=== PATIENT | female | born 1965 | race Caucasian/White ===

== ENCOUNTER 2016-06-29 14:31 | Emergency (ER) | payer OTHER ==
[~2016-06-29] VITALS: Ht 157.5 cm; Wt 101.7 kg
[2016-06-29 14:38] VITALS: Ht 157.5 cm; Wt 101.7 kg
[2016-06-29] MEDS ORDERED: ONDANSETRON 4MG OD TAB PO STA (15:08)
--- NOTE | 2016-06-29 15:46 | DIAGNOSTIC IMAGING REPORT ---
CERVICAL SPINE CT CT DOSE: 346.55 mGy.cm HISTORY: Trauma fall; neck pain TECHNIQUE: Multiaxial CT images of the cervical spine were performed and reformatted in the sagittal and coronal plane without the use of contrast. COMPARISON: None. FINDINGS: No fractures. No subluxation. Prevertebral soft tissues and the C1-C2 interval are intact. No pneumothorax. IMPRESSION: No fractures within the cervical spine. Electronically signed by: Ray Rosado M.D. 06/29/2016 3:44 PM Dictated Date/Time: 06/29/2016 3:43 PM
--- NOTE | 2016-06-29 16:20 | DIAGNOSTIC IMAGING REPORT ---
RIGHT KNEE 3 VIEWS CLINICAL HISTORY: fall; L knee pain Right trauma. Pain. COMPARISON: None. DISCUSSION: The bones and joint spaces appear intact. There is no evidence of fracture, dislocation or bony disease. There is no evidence for soft tissue swelling. IMPRESSION: Negative study. Electronically signed by: Ray Rosado M.D. 06/29/2016 4:19 PM Dictated Date/Time: 06/29/2016 4:18 PM
--- NOTE | 2016-06-29 16:21 | DIAGNOSTIC IMAGING REPORT ---
LEFT FOOT MIN 3 VIEWS ROUTINE CLINICAL HISTORY: fall; R foot pain trauma. Pain. COMPARISON: None. DISCUSSION: The bones and joint spaces appear intact. There is no evidence of fracture, dislocation or bony disease. There is no evidence for soft tissue swelling. IMPRESSION: Negative study. Electronically signed by: Ray Rosado M.D. 06/29/2016 4:19 PM Dictated Date/Time: 06/29/2016 4:19 PM
[2016-06-29] MEDS ORDERED: HYDROCODONE/ACETAMOPHEN 5/325MG TAB PO STA (16:38)
--- NOTE | 2016-06-29 16:38 | DIAGNOSTIC IMAGING REPORT ---
RIGHT RIBS UNILATERAL WITH PA CHEST CLINICAL HISTORY: fall; R rib pain Right trauma. Pain. COMPARISON STUDY: None FINDINGS: Negative right ribs. Negative chest. No evidence pneumothorax. IMPRESSION: Negative study Electronically signed by: Ray Rosado M.D. 06/29/2016 4:36 PM Dictated Date/Time: 06/29/2016 4:35 PM
[2016-06-29] MEDS ORDERED: HYDR-5688 PO (16:58)
[2016-06-29 17:26] VITALS: BP 155/99; PULSE 90; TEMP 36.6; O2SAT 97
--- NOTE | 2016-06-30 21:48 | EMERGENCY ROOM VISIT NOTE ---
ED Visit Note First contact with patient: 14:46 Chief Complaint: Fall. History of Present Illness: Ms. Corona is a 51-year-old female who is brought into the ED via ambulance following a fall complaining of neck pain, right sided rib pain, knee pain and foot pain. Patient reports she has a history of dizziness and unspecified heart disease. She goes on to report that she was at work this morning walking down stairs, started feeling lightheaded and slipped and fell down 2-3 steps. She reports she did not strike her head or have loss of consciousness and after the fall she reports she is having right-sided neck pain, right sided rib pain, knee and foot pain. She reports since the fall which happened just prior to arrival at the hospital she has had no symptoms of head injury. Patient does report her worst discomfort is over the right side of the neck and her ribs. She describes these both as a sharp sensation. She rates her discomfort 5/10. Her pain is nonradiating. She has not identified any aggravating or alleviating factors related to her neck pain. Her rib pain increases with deep inspiration and palpation. Associated with her pain she reports she is nauseated but has not vomited. Additionally during my examination patient was found to have right knee pain. This pain is located over the anterior aspect of the knee. She describes this pain as a mild burning sensation but does not rated. Her pain worsens with palpation. She has not identified any alleviating factors related to this pain. Also on my examination patient complains of pain over the top of the left foot. She describes this as a sharp sensation. She rates this discomfort 4/10. The pain worsens with palpation and dorsiflexion. She has not identified any alleviating factors related to the pain. Additionally she denies chest pain, shortness of breath, abdominal pain, lumbar back pain, extremity weakness/numbness/tingling. Review of Systems: As noted above in history of present illness. All body systems were reviewed and found to be negative as noted above. Past Medical History: As previously noted. Current Medications: Patient denies. Allergies to Medications: Aspirin, sulfa. Social History: Patient is currently employed; she lives with her and feels safe in her home environment; she denies tobacco and alcohol use. Physical Examination: Vital Signs: Date Time Temp Pulse Resp B/P Pulse Ox O2 Delivery O2 Flow Rate FiO2 4/5/17 17:26 36.6 90 20 155/99 97 06/29/16 17:25 90 20 155/99 97 Room Air 06/29/16 14:38 36.6 102 20 186/100 97 Room Air GENERAL: 51-year-old female in mild to moderate distress due to pain, nontoxic- appearing, afebrile and hemodynamically stable. NEUROLOGICAL: Awake, alert and oriented to person, place and time. Answering questions appropriately and following commands. Normal gait. Good hand eye coordination. No focal motor sensory deficits. SKIN: Warm, dry and pink. HEENT: Atraumatic and normocephalic. PERRL. Sclera white and conjunctiva pink. No drainage from naris. Oral cavity moist and pink. Pharynx is nonerythematous or edematous. Speech normal. No lymphadenopathy. Trachea midline. No jugular venous distention. BACK: No tenderness over the bony spine. No CVA tenderness. THORAX: Lungs sounds are clear to auscultation and equal bilaterally with symmetrical chest wall. No wheezing, rales or rhonchi. No crepitus, tenderness , subcutaneous air or deformities noted. HEART: Regular rate and rhythm. No gallops, rubs or murmurs are appreciated. ABDOMEN: Flat, soft and nontender. Positive bowel sounds in all quadrants. No guarding, rigidity or organomegaly. PELVIS: Stable and nontender to compression and rock. UPPER EXTREMITIES: No gross bony deformity. No tenderness in the shoulders, elbows, wrists or hands. In the mid posterior forearm area patient has a contusion with minimal tenderness. There is no bony deformity or crepitus. She does have full range of motion in all movements of the shoulders, elbows, wrists, forearms and hands. Throughout the hand the skin was warm and pink and capillary refill is brisk. She is able to distinguish light sensations through all dermatomes. LOWER EXTREMITY: No gross bony deformity. No shortening or malrotation of the extremity. No tenderness over the hips, thighs, lower legs or ankles. Over the right anterior knee patient has a superficial abrasion without bleeding. It is minimally tender to palpation. There is no joint effusions or laxity of the collateral cruciate ligaments. Heart range of motion is decreased to 90 of flexion but she is able to reach full extension. Negative bounce test. Throughout the lower leg skin was warm and pink and capillary refill is brisk. She is able to distinguish light sensations through all dermatomes. There is no tenderness throughout the ankle or foot. Throughout the left lower leg was no gross bony tenderness. There is no tenderness over the knee or lower leg. She did have moderate tenderness over the top of the foot in the mode foot area without bony deformity or crepitus. There does appear to be an early contusion starting to develop. Because of her discomfort she had difficulty dorsiflexion but did have full plantar flexion of the foot. Distal pulses, sensations and capillary refill weren't place and equal bilaterally. ED Course: Patient is assessed as noted above. Patient was given one [place] tablet by mouth and 4 mg of Zofran ODT for her symptoms. Cervical Spine CT: Was reviewed by myself and read by the radiologist showing no fractures or subluxations. PA Chest with Right Rib Series X-Rays: Was read by myself and the radiologist showing no acute infiltrates, effusions or pneumothorax. Normal heart silhouette. No rib fractures were identified. Right Knee X-Rays: Were read by myself and the radiologist; shows no acute fractures or dislocations. No evidence of soft tissue swelling or joint effusion. Left Foot X-Rays: Were read by myself and the radiologist showing no acute fractures or dislocations. No evidence of soft tissue swelling. Patient was placed in a postop shoe for her for pain and instructed on walker use. Patient's case was reviewed with Dr. Landa; we agreed on diagnostic approach, treatment, disposition and plan. Patient was educated about tonight's findings and instructed on her treatment plan; she verbalizes understanding and agreement with this plan. Clinical Impression: Fall. Neck pain. Right sided rib pain. Right knee abrasion. Right foot pain. Disposition: Patient discharged home in stable condition accompanied by her ; prior to departure she was reassessed and subjectively reported she was feeling better. Plan: Comfort measures were discussed with the patient including rest, ice, splint and walker use and a sliding pain medication scale of ibuprofen, acetaminophen and [place]; appropriate precautions were discussed with the patient considering the use of narcotics. Patient was encouraged when she had maximal relief of her discomfort she should do deep breathing exercises for 5-10 minutes. Patient was encouraged to follow-up with primary care physician for recheck in 3 -4 days. Patient was encouraged return ED for worsening/uncontrolled pain, shortness of breath, fevers, wheezing, extremity weakness/numbness/tingling or any new/ concerning symptoms.
== END 2016-06-29 17:28 | disposition home or self-care (01) ==
LOC: EDBD 14:31 → C.EDB 14:36
DX: M54.2 Cervicalgia (principal); R07.81 Pleurodynia; S80.211A Abrasion, right knee, initial encounter; M79.671 Pain in right foot; W10.9XXA Fall (on) (from) unspecified stairs and steps, initial encounter; Y92.89 Other specified places as the place of occurrence of the external cause; Y99.0 Civilian activity done for income or pay; I51.9 Heart disease, unspecified

== ENCOUNTER 2024-12-03 14:50 | Inpatient (IN) ==
[2024-12-03 15:32] LABS: Hematocrit (blood only) 38.7 % (37.0-47.0); Hemoglobin 13.4 g/dl (12.0-16.0); Immature Granulocytes # (auto) 0.01 K/uL (0.01-0.20); Immature Granulocytes % (auto) 0.2 %; Mean Corpuscular Hemoglobin 29.5 pg (25.0-34.0); Mean Corpuscular Volume 85.2 fL (80.0-100.0); Platelet Count 227 K/uL (130-400); RDW Standard Deviation 38.5 fL (36.4-46.3); Red Blood Count 4.54 M/uL (4.20-5.40); White Blood Count 5.12 K/ul (4.8-10.8)
--- NOTE | 2024-12-03 15:42 | Emergency Department Note ---
Impression & Plan Precordial chest pain, SOB (shortness of breath), Tachycardia, Elevated d-dimer ED Provider Note NAME: JONATHAN AVERY AGE: 59 SEX: F : 1965 ARRIVES VIA: Walk-In INFORMANT: [Patient] ED PROVIDER(S): [Shyam Landa MD] CHIEF COMPLAINT: Chest pain, palpitations HISTORY OF PRESENT ILLNESS: The patient is a 59-year-old female who states that this morning, around 9-1/2 hours ago, she was on her [employer] when, the heart rate spiked to 201. She felt mildly short of breath. She states that she has had some left-sided chest pain and aching into the shoulder blade ever since. The pain is sometimes worse to take a deep breath. She feels mildly short of breath and today, she has been dizzy and has had to sit to catch her breath. No history of previous DVT or PE, no history of DE, she was told in the past that she had a leaky heart valve and has previously been diagnosed with SVT. No recent prolonged travel by car plane or train. She is not on blood thinning agents. PMHx/PSHx/Social Hx: See Below PHYSICAL EXAM: GENERAL: Patient is in no acute distress. HEENT: No acute trauma, normocephalic atraumatic, mucous membranes moist, no nasal congestion. NECK: No stridor, no adenopathy, no meningismus, trachea is midline. LUNGS: Clear to auscultation bilaterally, no wheeze, no rhonchi, breath sounds equal. HEART: Subtle systolic murmur, regular rate and rhythm. Chest: Nontender chest wall. ABDOMEN: Soft, nontender, no peritonitis. EXTREMITIES: No cyanosis, full range of motion of all the joints without pain or difficulty. NEUROLOGIC: Oriented x 3, no acute motor or sensory deficits, no focal weakness. SKIN: No jaundice, no diaphoresis. DIFFERENTIAL DIAGNOSIS: SVT, V. tach, A-fib or a flutter, DE, anemia, among others. EMERGENCY DEPARTMENT PROCEDURES: MEDICAL DECISION MAKING: There is no leukocytosis or concerning anemia. There is a normal platelet count. No coagulopathy. D-dimer is elevated making PE more likely. There was no renal failure or significant electrolyte abnormality. No concerning liver enzyme elevation. Patient appeared to be in a euthyroid state. ECG shows a sinus rhythm, no ST elevation. Cardiac enzyme testing x 1 is not consistent with acute cardiac injury. On exam, the patient's chest pain was not reproducible. She was not febrile or toxic. The patient presents with tachycardia, her heart rate was recorded in the 200s earlier today. Since the episode, she has had chest pain and has been short of breath. With the elevated D-dimer, a chest CT was ordered, these results are pending. Given the history, given the tachycardia, given her chest pain, given her dyspnea, given the elevated D-dimer, I do think a hospital stay, monitoring and further cardiac workup is warranted. I spoke with the patient and case management, the on-call hospitalist was consulted. The patient was given IV Tylenol pain--aspirin was not given as she has an allergy to aspirin. Prior/Outside records/notes reviewed: None ECG per my interpretation: Indication was palpitations and chest pain. The ECG shows a normal sinus rhythm with a rate of 77. There is no ST elevation, no PVCs. The QTc is 425. Continuous Cardiac Monitoring per my interpretation: An order was placed for continuous cardiac monitoring. The monitor shows a rate of 73 with normal sinus rhythm. Imaging/x-ray results per my interpretation: Chest x-ray does not show mediastinal widening, pneumonia or pneumothorax. Chronic Medical/Social conditions affecting care: None Care/Management discussed with: Case management, the on-call hospitalist. Level of care consideration(s): After review of the information above and other included data: --I believe the patient requires escalation of care to admission DISPOSITION: Admission Past Med/Surg History Problem List Elevated d-dimer (Acute) SOB (shortness of breath) (Acute) Precordial chest pain (Acute) COVID-19 (Acute) Acute pyelonephritis (Acute 02/17/11) Aortic valve regurgitation (Chronic Unknown) "mild by echo 12/24/10 " Left leg swelling (Acute) Left leg swelling (Acute) Lower GI bleed (Acute) Lumbar back pain (Acute) Neck pain (Acute) Thoracic back pain (Acute) Thoracic back pain (Acute) Medical History Tachycardia Social History Smoking Status: Never smoker Hx Alcohol Use: Yes Hx Substance Use: No Preferred Language: Bangl[place]hi 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 Beliefs That Will Affect Care: None Current Living Situation: Spouse Feels Safe at Home: Yes Allergies Allergies Allergy/AdvReac Type Severity Reaction Status Date / Time Sulfa (Sulfonamide Allergy Unknown Unknown Verified 10/04/19 12:05 Antibiotics) aspirin AdvReac Unknown BLEEDING Verified 10/04/19 12:05 AROUND EYES Home Meds Home Medications Medication Instructions Recorded Confirmed atorvastatin 40 mg tablet 40 mg PO HS 07/03/18 01/29/24 ergocalciferol (vitamin D2) 1,250 50,000 unit PO BURKS 07/03/18 01/29/24 mcg (50,000 unit) capsule melatonin 2.5 mg chewable tablet 2.5 mg PO HS PRN Sleep 11/13/18 01/29/24 potassium chloride 10 mEq 10 meq PO QAM 11/13/18 01/29/24 tablet,extended release (Klor-Con) aspirin 81 mg chewable tablet 81 mg PO HS 10/04/19 01/29/24 [id number]-[id number] acid 0.4 1 tab PO QAM 10/04/19 01/29/24 mg-lycopene 300 mcg-lutein 250 mcg tablet (Centrum Silver) furosemide 20 mg tablet 20 mg PO DAILY 01/29/24 01/29/24 metoprolol succinate 25 mg 25 mg PO DAILY 01/29/24 01/29/24 tablet,extended release 24 hr Results & Data (ED) Vital Signs Vital Signs - 24 hr 12/03/24 14:51 12/03/24 15:31 12/03/24 15:31 Temperature 36.6 C Temperature Source Temporal Artery Scan Pulse Rate 73 Pulse Rate [Apical] Pulse Rhythm [Apical] Pulse Strength [Apical] Respiratory Rate 18 Respiratory Effort / Characteristics Respiratory Depth Respiratory Pattern Blood Pressure 151/83 H Blood Pressure [Right Arm] Blood Pressure Mean 105 Blood Pressure Mean [Right Arm] Blood Pressure Position [Right Arm] Pulse Oximetry 97 96 96 Oxygen Delivery Method Room Air Room Air Room Air Sepsis Recent Fever Within 48 Hours No Sepsis New/Unexplained Change in Mental Status N/A Sepsis Action Taken by Nursing No Action Required 12/03/24 15:32 12/03/24 15:54 12/03/24 16:52 Temperature Temperature Source Pulse Rate 71 Pulse Rate [Apical] 57 L Pulse Rhythm [Apical] Regular Pulse Strength [Apical] Normal Respiratory Rate Respiratory Effort / Characteristics Non-Labored Spontaneous Respiratory Depth Normal Respiratory Pattern Regular Blood Pressure Blood Pressure [Right Arm] 116/73 Blood Pressure Mean Blood Pressure Mean [Right Arm] 87 Blood Pressure Position [Right Arm] Lying Pulse Oximetry 96 98 Oxygen Delivery Method Room Air Room Air Sepsis Recent Fever Within 48 Hours Sepsis New/Unexplained Change in Mental Status Sepsis Action Taken by [facility] Medications Current Medication List: was personally reviewed by me Laboratory Data Attestation: I reviewed the patient's lab results. 12/03/24 15:10 12/03/24 15:10 Lab Results 12/03/24 Range/Units 15:10 WBC 5.12 (4.8-10.8) K/ul RBC 4.54 (4.20-5.40) M/uL Hgb 13.4 (12.0-16.0) g/dl Hct 38.7 (37.0-47.0) % MCV 85.2 (80.0-100.0) fL MCH 29.5 (25.0-34.0) pg MCHC 34.6 (32.0-36.0) g/dL RDW Std Deviation 38.5 (36.4-46.3) fL RDW Coeff of Jace 12.5 (11.5-14.5) % Plt Count 227 (130-400) K/uL MPV 9.1 L (9.4-12.4) fL Immature Gran % (Auto) 0.2 % Neut % (Auto) 57.4 % Lymph % (Auto) 33.0 % [place] % (Auto) 8.0 % Eos % (Auto) 1.0 % Baso % (Auto) 0.4 % Neut # (Auto) 2.94 (1.40-6.50) K/uL Lymph # (Auto) 1.69 (1.20-3.40) K/uL [place] # (Auto) 0.41 (0.11-0.59) K/uL Eos # (Auto) 0.05 (0.00-0.50) K/uL Baso # (Auto) 0.02 (0.00-0.20) K/uL Immature Gran # (Auto) 0.01 (0.01-0.20) K/uL PT 10.3 (9.0-12.0) Seconds INR 0.9 (0.9-1.1) APTT 26 (21-31) Seconds PTT Ratio 1.0 D-Dimer 570 H* (0-500) ug/L FEU Sodium 142 (136-145) mmol/L Potassium 3.8 (3.5-5.1) mmol/L Chloride 105 (98-107) mmol/L Carbon Dioxide 28 (21-32) mmol/L Anion Gap 9 (3-11) BUN 15 (6-23) mg/dl Creatinine 0.73 (0.6-1.2) mg/dl Est Cr Clr Drug Dosing 78.3 ml/min eGFR 94.09 BUN/Creatinine Ratio 20.5 H (10-20) Glucose 94 (70-99(Fasting)) mg/dl Calcium 9.3 (8.6-10.3) mg/dl Magnesium 2.1 (1.7-2.4) mg/dl Total Bilirubin 1.3 H (0.2-1.0) mg/dl AST 32 (13-39) U/L ALT 29 (7-52) U/L Alkaline Phosphatase 76 (34-104) U/L Troponin I High Sens 3.2 (0-14) pg/ml Total Protein 7.4 (6.0-8.3) gm/dl Albumin 4.4 (3.4-5.0) gm/dl Globulin 3.0 (2.5-4.0) gm/dl Albumin/Globulin Ratio 1.5 (0.9-2) TSH 0.853 (0.300-4.500) uIu/ml Imaging Data Radiologist's Impression: Chest X-Ray 12/03/24 15:01 XR chest 1V portable CLINICAL HISTORY: Chest pain, nonspecific COMPARISON STUDY: 01/29/2024 FINDINGS: Heart size and pulmonary vasculature are normal. No consolidation or pleural effusion. No pneumothorax. IMPRESSION: No acute findings. ACT 112: Negative or not required by law. Electronically signed by: Alejo Reynoso M.D. 12/03/2024 3:48 PM Discharge Plan Visit Data Chief Complaint: Chest Pain Stated Complaint: CHEST PAIN, ELEVATED HEART RATE, NAUSEA ED Provider: Shyam Landa Discharge Problem: Precordial chest pain, SOB (shortness of breath), Tachycardia, Elevated d-dimer Patient Disposition: Admitted As Inpatient Condition: Fair Forms Stand Alone Forms: My [facility] Prescriptions Prescriptions: No Action atorvastatin 40 mg tablet 40 mg PO HS ergocalciferol (vitamin D2) 50,000 unit Capsule 50,000 unit PO BURKS Centrum Silver 0.4-300-250 mg-mcg-mcg Tablet 1 tab PO QAM aspirin 81 mg tablet,chewable 81 mg PO HS potassium chloride [Klor-Con 10] 10 mEq Tablet Extended Release 10 meq PO QAM Rx Instructions: take after breakfast melatonin 2.5 mg Tablet,Chewable 2.5 mg PO HS PRN (Reason: Sleep) furosemide 20 mg tablet 20 mg PO QAM metoprolol succinate 25 mg tablet extended release 24 hr 25 mg PO QAM Referrals Referrals: Krish Dimas MD [Outside Practitioners] -
--- NOTE | 2024-12-03 15:49 | XRay Report ---
XR chest 1V portable CLINICAL HISTORY: Chest pain, nonspecific COMPARISON STUDY: 01/29/2024 FINDINGS: Heart size and pulmonary vasculature are normal. No consolidation or pleural effusion. No p neumothorax. IMPRESSION: No acute findings. ACT 112: Negative or not required by law. Electronically signed by: Alejo Reynoso M.D. 12/03/2024 3:48 PM
[2024-12-03 15:52] LABS: Anion Gap 9.0 (3-11); Bilirubin,Total 1.3 mg/dl (0.2-1.0); Calcium 9.3 mg/dl (8.6-10.3); Carbon Dioxide 28.0 mmol/L (21-32); Chloride 105.0 mmol/L (98-107); Magnesium 2.1 mg/dl (1.7-2.4); Potassium 3.8 mmol/L (3.5-5.1); Sodium 142.0 mmol/L (136-145)
[2024-12-03 15:58] LABS: Alanine Aminotransferase 29.0 U/L (7-52); Albumin Globulin Ratio 1.5 (0.9-2); Alkaline Phosphatase 76.0 U/L (34-104); Blood Urea Nitrogen 15.0 mg/dl (6-23); Creatinine Clr Calc Pharmacy 78.3 ml/min; Globulin 3.0 gm/dl (2.5-4.0); Glucose 94.0 mg/dl (70-99(Fasting)); Total Protein 7.4 gm/dl (6.0-8.3)
[2024-12-03 16:10] LABS: INR 0.9 (0.9-1.1); Partial Thromboplastin Time 26 Seconds (21-31); Prothrombin Time 10.3 Seconds (9.0-12.0)
[2024-12-03 16:21] LABS: Thyroid Stimulating Hormone 0.853 uIu/ml (0.300-4.500)
[2024-12-03] MEDS: ACETAMINOPHEN 1,000 MG/100 ML VIAL IV STA (17:38)
[2024-12-03] MEDS: OPTIRAY 320 125ml IV ONE (17:56)
--- NOTE | 2024-12-03 18:08 | History & Physical Report ---
Date of Service December 03, 2024 Assessment & Plan (1) Chest pain, rule out acute myocardial infarction: (2) Elevated d-dimer: (3) HLD (hyperlipidemia): Plan Ms. Corona is a 59 year old F admitted for chest pain rule out. She started to experience CP and SOB while riding her [place]. She noted that her HR was recorded at 201 about 10-11 minutes into her workout. She is chest pain free since presenting to the ED, although continues to feel nauseated with intermit tent lightheadedness. Additional PMH includes: SVT, diastolic CHF, mild aortic regurgitation, HTN and HLD. She does report having a heart catheterization in 2019 with minimally noted cardiac disease; Chart review indicates 10% proximal RCA stenosis. No history of DVT/PE. Her last appointment with cardiology was 01/29/2024 and her next appointment is 03/21/2025. It appears that she has intermittently experienced chest pressure and lightheadedness associated with daily activities. She did have a stress test in 2023. Patient with significant familial cardiac history. Grandmother had AVR and at 62 years old, father with stents and pacemaker, she has 2 sisters. One has had CABG x 4 and both have had AMI x 2. Pt denies tobacco, alcohol and recreational drug use. Patient will be admitted for further evaluation and monitoring for chest pain rule out. ECG in AM. Trend troponin and obtain repeat ECHO. Would benefit from opt ZIO patch or possibly stress test. Given mild elevated of d-dimer, will obtain chest CTA. Given cardiac history and relationship established with [employer] cards will consult cardiology for further guidance. Chest Pain - rule out AMI: Chest pain and SOB identified with elevated HR (201) while riding [place] HR 70's since ED arrival Initial Troponin negative; will trend x2 ECG NSR; repeat in AM No history of DVT/PE Most Recent ECHO 05/2022; EF 55 to 59%, mild AVR, TR and LVWMN. Will obtain repeat ECHO NPO after MN pending cards eval Elevated D-Dimer: D-Dimer: 570 Low suspicion for PE; will obtain Chest CT Diastolic Heart Failure: Most Recent ECHO 05/2022; EF 55 to 59%, mild AVR, TR and LVWMN. Will obtain repeat ECHO Euvolemic on exam HTN: Takes Metoprolol; continue HLD: Takes atorvastatin; continue Disposition: PCP: Dr. Diaz Code Status: Full VTE Prophylaxis: TEDS and SCDs for now ELOS: 1-2 days I spent a total of 83 minutes coordinating, documenting, and providing care for this patient excluding time spent inthe performance of separately billed services or time spent by another provider/QHP. History of Present Illness Chief Complaint: chest pain/SOB Primary Care Provider: Ana Lilia Diaz PA-C Ms. Corona is a 59 year old female that presented to the ED today after she started to experience chest pain and SOB while she was riding her [place]. She noted that her HR was recorded at 201 about 10-11 minutes into her workout. She proceeded to the ED. She is chest pain free since presenting to the ED, Although continues to feel nauseated with intermittent lightheadedness. Additional PMH includes: SVT, diastolic CHF, mild aortic regurgitation,HTN and HLD. Patient reports that she was started on metoprolol 25 mg twice daily last year when she was identified to have SVT. She does report having a heart catheterization in 2018 with minimally noted cardiac disease; Chart review indicates 10% proximal RCA stenosis. No history of DVT/PE. She reportedly was told she should have been seen for inpatient monitoring but due to personal circumstances she was unable to proceed with such. Her last appointment with cardiology was 01/29/2024 and her next appointment is 03/21/2025. It appears that she has intermittently experienced chest pressure and lightheadedness associated with daily activities. She did have a stress test in 2023. Most recent ECHO was May 2022; EF 55 to 59%, mild AVR, TR and normal left v entricular wall motion. Patient with significant familial cardiac history. Grandmother had AVR and at 62 years old, father with stents and pacemaker, she has 2 sisters. One has had CABG x 4 and both have had AMI x 2. Pt denies tobacco, alcohol and recreational drug use. In the ED, no leukocytosis, initial troponin negative. Electrolytes all normal. D-Dimer mildy elevated at 570. No recent travel or new medications. Given mild elevation, Chest CT ordered to rule out PE; low suspicion for PE. Patient will be admitted for further evaluation and monitoring with ECG in AM. Trend troponin and obtain repeat ECHO. Would benefit from opt ZIO patch or possibly stress test. Given mild elevated of d-dimer, will obtain chest CTA. Given cardiac history and relationship established with [employer] cards will consult cardiology for further guidance. Please see A/P for further details. Allergies Allergy/AdvReac Type Severity Reaction Status Date / Time Sulfa (Sulfonamide Allergy Unknown Unknown Verified 10/04/19 12:05 Antibiotics) aspirin AdvReac Unknown BLEEDING Verified 10/04/19 12:05 AROUND EYES Home Medications Medication Instructions Recorded Confirmed Type atorvastatin 40 mg tablet 40 mg PO HS 07/03/18 12/03/24 History melatonin 2.5 mg chewable tablet 2.5 mg PO HS PRN Sleep 11/13/18 12/03/24 History potassium chloride 10 mEq 10 meq PO QAM 11/13/18 12/03/24 History tablet,extended release (Klor-Con) aspirin 81 mg chewable tablet 81 mg PO HS 10/04/19 12/03/24 History tdpfjopb-wtd-wpcys acid 0.4 1 tab PO QAM 10/04/19 12/03/24 History mg-lycopene 300 mcg-lutein 250 mcg tablet (Centrum Silver) furosemide 20 mg tablet 20 mg PO QAM 01/29/24 12/03/24 History metoprolol succinate 25 mg 25 mg PO QAM 01/29/24 12/03/24 History tablet,extended release 24 hr Past Med/Surg History Problem List HLD (hyperlipidemia) Chest pain, rule out acute myocardial infarction Elevated d-dimer (Acute) SOB (shortness of breath) (Acute) Precordial chest pain (Acute) COVID-19 (Acute) Acute pyelonephritis (Acute 02/17/11) Aortic valve regurgitation (Chronic Unknown) "mild by echo 12/24/10 " Left leg swelling (Acute) Left leg swelling (Acute) Lower GI bleed (Acute) Lumbar back pain (Acute) Neck pain (Acute) Thoracic back pain (Acute) Thoracic back pain (Acute) Medical History Tachycardia Social History Smoking Status: Never smoker Hx Alcohol Use: Yes Hx Substance Use: No Preferred Language: [place] Validation Specialist Required: No Beliefs That Will Affect Care: None Current Living Situation: Spouse Feels Safe at Home: Yes Review of Systems Review of Systems: Neuro: (-) Falls, trauma, slurred speech HEENT: (-) JEFFERS, dizziness, dysphagia, visual or auditory changes CV: (-) CP, palpitations, swelling Resp: (-) SOB GI: (-) appetite changes, N/V/D, bowel changes : (-) urinary changes Skin: (-) rashes Psych: (-) anxiety, depression Physical Exam Physical Exam: Neuro: AAOx4, PERRLA, no aphagia, memory changes, CNII-XII grossly intact HEENT: head normocephalic, moist mucus membranes CV: S1/S2, Murmur LSB Grade IV/ auscultated, (-) G/R, (-) edema, cap refill < 3 seconds Resp: Lungs CTA in all montoya. On RA GI: Abdomen S/NT/ND, Ax4 bowel sounds, (-) CVA tenderness Musculoskeletal: 5/5 B/L UE strength, 5/5 B/L LE strength. No gait disturbance Skin: (-) rashes , (-) erythema. Psych: euthymic mood Results & Data Results & Data Vital Signs (Past 12 Hours) Vital Signs Temp Pulse Pulse Resp BP BP Pulse Ox 12/03/24 16:52 57 L 116/73 98 12/03/24 15:54 71 12/03/24 15:32 96 12/03/24 15:31 96 12/03/24 15:31 96 12/03/24 14:51 36.6 C 73 18 151/83 H 97 O2 Del Method 12/03/24 16:52 Room Air 12/03/24 15:54 12/03/24 15:32 Room Air 12/03/24 15:31 Room Air 12/03/24 15:31 Room Air 12/03/24 14:51 Room Air Laboratory Results Short CBC 12/03/24 Range/Units 15:10 WBC 5.12 (4.8-10.8) K/ul Hgb 13.4 (12.0-16.0) g/dl Hct 38.7 (37.0-47.0) % Plt Count 227 (130-400) K/uL [facility] 12/03/24 15:10 Sodium 142 Potassium 3.8 Chloride 105 Carbon Dioxide 28 BUN 15 Creatinine 0.73 Glucose 94 Calcium 9.3 Liver Function 12/03/24 Range/Units 15:10 Total Bilirubin 1.3 H (0.2-1.0) mg/dl AST 32 (13-39) U/L ALT 29 (7-52) U/L Alkaline Phosphatase 76 (34-104) U/L Albumin 4.4 (3.4-5.0) gm/dl Diagnostic Findings Chest X-Ray 12/03/24 15:01 XR chest 1V portable CLINICAL HISTORY: Chest pain, nonspecific COMPARISON STUDY: 01/29/2024 FINDINGS: Heart size and pulmonary vasculature are normal. No consolidation or pleural effusion. No pneumothorax. IMPRESSION: No acute findings. ACT 112: Negative or not required by law. Electronically signed by: Alejo Reynoso M.D. 12/03/2024 3:48 PM Code Status & VTE Plan Code Status Full Code in the event of cardiac or respiratory arrest VTE Prophylaxis Plan VTE Prophylaxis will be ordered: Yes Supervising Physician Co-Signing Physician Notes 59-year-old lady with PMH of HLD, mild CAD presents to the ED after experiencing chest discomfort [radiating to left shoulder] after riding her Peloton in the morning, during the workout the symptoms started as lightheadedness and nausea which progressed to chest discomfort but no sob after the work out, and also states that her heart rate was in 200s during peak of her workout and it took long time after stopping work out to settle down back to normal. Labs and imaging reviewed, WNL. D-dimer slightly elevated. CXR with no acute finding. CTA chest pending Chest pain, rule out ACS, trend troponin, echo, telemetry monitoring. EKG in a .m., stress test tomorrow, cardiology consult, telemetry monitoring. Possible Zio patch monitoring as an outpatient. On exam: On room air, NAD, no BLE edema, rest of the examination as above. Total time spent independently: 21 minutes. I have seen and examined the patient and have discussed the case with the provider above. I agree with the assessment and plan as stated.
--- NOTE | 2024-12-03 19:04 | CT Scan Report ---
EXAMINATION: CT angio chest PE protocol CLINICAL HISTORY: Evaluate for pulmonary embolism PRIORS: 07/10/2023 CT chest TECHNIQUE: Contiguous axial images were obtained through the chest with the use of intravenous contrast. Sagittal and coronal reformations are supplied. FINDINGS: The pulmonary arteries are well opacified. No central or peripheral pulmonary embolism. Large amount of motion noted through the chest. Left-sided aortic arch present with beam hardening from contrast bolus noted. Heart size within normal limits. No pericardial effusion. Aorta is normal in caliber. No adenopathy in the chest. Trachea and mainstem bronchi patent. Thyroid is normal in size. Small amount of gas present in the esophagus lumen. Mild hypoventilatory changes at the lung bases. No airspace consolidation, pneumothorax or pleural effusion. Limited visualization of the upper abdomen shows cholecystectomy clips. No acute osseous abnormality. Degenerative change of the spine. IMPRESSION: No CT evidence of an acute cardiopulmonary process. Electronically signed by Jasmine Aguila 12-03-2024 7:04 PM
[2024-12-03] MEDS ORDERED: ALUMINUM/MAGNESIUM SUSP 30 ML UDC PO PRN (19:38)
[2024-12-03] MEDS ORDERED: POLYETHYLENE (MIRALAX) 17 GM PACK PO PRN (19:38)
[2024-12-03] MEDS ORDERED: MAGNESIUM HYDROXIDE SUSP 30 ML UDC PO PRN (19:38)
[2024-12-03] MEDS: ASPIRIN 81 MG CHEW PO SCH (21:33)
[2024-12-03] MEDS: ATORVASTATIN 40 MG TAB PO SCH (21:33)
[2024-12-03] MEDS: ACETAMINOPHEN 325 MG TAB PO PRN (21:35)
[2024-12-04] MEDS ORDERED: PROMETHAZINE 12.5 MG/50.5 ML BAG IV PRN (01:57)
[2024-12-04] MEDS ORDERED: MoRPHine SULFATE 4 MG/ML 1 ML CARP\\VIAL IV PRN (01:57)
[2024-12-04] MEDS: ONDANSETRON INJ 2 MG/ML 2 ML VIAL IV PRN (02:09)
[2024-12-04] MEDS: NITROGLYCERIN SL 0.4 MG/TAB TAB SL STA (02:09)
--- NOTE | 2024-12-04 02:33 | Communication Note ---
Date of Service: December 04, 2024 Patient had left-sided chest pain with radiation to the shoulder blades relieved by nitroglycerin. EKG as per my interpretation Rate 65, NSR, normal axis, no ischemia Troponin x 4 negative AP Chest pain rule out ACS Cardiology consult N.p.o. in anticipation of ischemic workup
[2024-12-04 02:36] LABS: Hematocrit (blood only) 35.9 % (37.0-47.0); Hemoglobin 12.2 g/dl (12.0-16.0); Mean Corpuscular Hemoglobin 28.9 pg (25.0-34.0); Mean Corpuscular Volume 85.1 fL (80.0-100.0); Platelet Count 201 K/uL (130-400); RDW Standard Deviation 38.9 fL (36.4-46.3); Red Blood Count 4.22 M/uL (4.20-5.40); White Blood Count 4.80 K/ul (4.8-10.8)
[2024-12-04 02:52] LABS: Anion Gap 7.0 (3-11); Blood Urea Nitrogen 18.0 mg/dl (6-23); Calcium 8.9 mg/dl (8.6-10.3); Carbon Dioxide 26.0 mmol/L (21-32); Chloride 108.0 mmol/L (98-107); Creatinine Clr Calc Pharmacy 83.6 ml/min; Glucose 106.0 mg/dl (70-99(Fasting)); Magnesium 2.1 mg/dl (1.7-2.4); Potassium 3.9 mmol/L (3.5-5.1); Sodium 141.0 mmol/L (136-145)
[2024-12-04 03:28] LABS: Partial Thromboplastin Time 25 Seconds (21-31)
[2024-12-04] MEDS: FUROSEMIDE 20 MG TAB PO SCH (08:28)
[2024-12-04] MEDS: METOPROLOL SUCC 25MG EXT REL TAB PO SCH (08:39)
--- NOTE | 2024-12-04 09:07 | Cardiology Consultation ---
Date of Consultation December 04, 2024 Assessment & Plan (1) Precordial chest pain: Patient with serial negative high-sensitivity troponin levels. With heart rate elevated to the range of 200 bpm with exercise yesterday, question if she experienced an arrhythmia such as supraventricular tachycardia. With regards to angina, the patient had well over 3 hours of discomfort prior to arrival last evening I think the normal EKG, normal resting wall motion on echocardiogram and normal serial high sensitive troponin levels are reassuring. Will proceed with an exercise stress echocardiogram today. It is noted that on previous stress test dating back to 2016 she had mild equivocal EKG changes and therefore the stress test will have to be interpreted accordingly. Patient agreeable to this plan. Continue aspirin, atorvastatin, metoprolol, prehospital treatment with furosemide. Future considerations include outpatient ambulatory architecture instructor. (2) HLD (hyperlipidemia): Cholesterol under reasonably well-controlled on most recent panel. Continue atorvastatin 40 mg daily. I spent a total of 60 minutes on the date of service in preparation, delivery, and documentation of the care provided to this patient, excluding any time spent in the performance of separately billed services. Jeniffer Grayson DO History of Present Illness Attending Physician: Jonnathan Ferguson MD History of Present Illness Melony Corona is a 59 year old female seen in cardiology consultation per the request of Dr Zapien for the evaluation of chest pain. Patient states that she was in her normal state of health yesterday at 6 AM when she started exercising on her Peloton stationary bicycle. She states that she was not exercising vigorously and 8 minutes into her session she started feeling lightheadedness and sick in her stomach. The heart rate monitor revealed an elevated heart rate of 201 bpm. She subsequently had left-sided chest discomfort. After she did not feel too bad and she went to work. 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 Throughout the day however she had hours of mild ongoing chest discomfort but bothered her. She states that her symptoms resolved with administration of nitroglycerin last evening. History: Hypertension Diastolic heart failure Mild aortic regurgitation Supraventricular tachycardia Dyslipidemia Cardiac catheterization previously performed at [facility] on 11/13/2018 presented with chest discomfort with findings of mild calcification of the ostial left main without obstructive disease, 10% proximal stenosis of the right coronary artery with mild catheter induced vasospasm, otherwise no significant disease was observed. Nonischemic stress echocardiogram 02/14/2024 with noted hypertensive blood pressure response to exercise, completed 5 minutes 59 seconds on a Charles protocol Family History: The patient has a significant family history of heart disease, with one sister having a quadruple bypass at the age of 50 and another sister experiencing a near-fatal heart attack at the age of 42. The patient's father also had heart disease from his late thirties. Social History: Lives independently with her . Non-smoker. Allergies Allergy/AdvReac Type Severity Reaction Status Date / Time Sulfa (Sulfonamide Allergy Unknown Unknown Verified 10/04/19 12:05 Antibiotics) aspirin AdvReac Unknown BLEEDING Verified 10/04/19 12:05 AROUND EYES Home Medications Medication Instructions Recorded Confirmed Type atorvastatin 40 mg tablet 40 mg PO HS 07/03/18 12/03/24 History melatonin 2.5 mg chewable tablet 2.5 mg PO HS PRN Sleep 11/13/18 12/03/24 History potassium chloride 10 mEq 10 meq PO QAM 11/13/18 12/03/24 History tablet,extended release (Klor-Con) aspirin 81 mg chewable tablet 81 mg PO HS 10/04/19 12/03/24 History mftodlxu-vin-yroly acid 0.4 1 tab PO QAM 10/04/19 12/03/24 History mg-lycopene 300 mcg-lutein 250 mcg tablet (Centrum Silver) furosemide 20 mg tablet 20 mg PO QAM 01/29/24 12/03/24 History metoprolol succinate 25 mg 25 mg PO QAM 01/29/24 12/03/24 History tablet,extended release 24 hr Patient History Medical History Tachycardia Social History Smoking Status: Never smoker Hx Alcohol Use: No Hx Substance Use: No Preferred Language: Georgian Rivet Bucker Required: No Beliefs That Will Affect Care: None Current Living Situation: Spouse and Family Feels Safe at Home: Yes Review of Systems Review of Systems: All systems reviewed & are unremarkable except as noted in HPI & below Physical Exam Constitutional: WD/WN, vitals as above Neck: trachea midline Cardiovascular: RRR, no murmur, no edema Vessels: + JVD Gastrointestinal (Abdomen): normal bowel sounds, soft, nontender, no hepatosplenomegaly Neurologic: PERRL, EOMI, accommodation nl, no face palsy, no dysarthria Results & Data Vital Signs (Past 12 Hours) Vital Signs Temp Pulse Pulse Resp BP Pulse Ox O2 Del Method 12/04/24 08:39 48 L 12/04/24 08:16 36.7 C 59 L 20 115/75 96 Room Air 12/04/24 03:52 36.8 C 70 18 125/89 98 Room Air 12/03/24 22:59 36.8 C 66 18 115/78 98 Room Air 12/03/24 22:48 57 L 12/03/24 21:00 36.8 C 79 18 160/88 H 98 Room Air Laboratory Results Cardiac Enzymes 12/03/24 12/03/24 12/03/24 Range/Units 15:10 18:40 21:08 AST 32 (13-39) U/L Troponin I High Sens 3.2 3.1 3.6 (0-14) pg/ml 12/04/24 Range/Units 02:19 AST (13-39) U/L Troponin I High Sens 2.4 (0-14) pg/ml Coagulation 12/03/24 12/04/24 Range/Units 15:10 02:19 PT 10.3 (9.0-12.0) Seconds APTT 26 25 (21-31) Seconds CBC 12/03/24 12/04/24 Range/Units 15:10 02:19 WBC 5.12 4.80 (4.8-10.8) K/ul RBC 4.54 4.22 (4.20-5.40) M/uL Hgb 13.4 12.2 (12.0-16.0) g/dl Hct 38.7 35.9 L (37.0-47.0) % Plt Count 227 201 (130-400) K/uL Neut # (Auto) 2.94 (1.40-6.50) K/uL Lymph # (Auto) 1.69 (1.20-3.40) K/uL Hopkins # (Auto) 0.41 (0.11-0.59) K/uL Eos # (Auto) 0.05 (0.00-0.50) K/uL Baso # (Auto) 0.02 (0.00-0.20) K/uL Comprehensive Metabolic Panel 12/03/24 12/04/24 Range/Units 15:10 02:19 Sodium 142 141 (136-145) mmol/L Potassium 3.8 3.9 (3.5-5.1) mmol/L Chloride 105 108 H (98-107) mmol/L Carbon Dioxide 28 26 (21-32) mmol/L BUN 15 18 (6-23) mg/dl Creatinine 0.73 0.73 (0.6-1.2) mg/dl Glucose 94 106 H (70-99(Fasting)) mg/dl Calcium 9.3 8.9 (8.6-10.3) mg/dl AST 32 (13-39) U/L ALT 29 (7-52) U/L Alkaline Phosphatase 76 (34-104) U/L Total Protein 7.4 (6.0-8.3) gm/dl Albumin 4.4 (3.4-5.0) gm/dl Fasting lipid panel performed as an outpatient 05/20/2024: Total cholesterol 170, triglycerides 88, HDL 64, LDL 88 Diagnostic Findings EKG performed at 12/05/2023 at 1:42 AM revealed normal sinus rhythm at 66 bpm, normal ST segments. Summary of resting echocardiogram performed today 12/04/2024: Sinus bradycardia in the 50s is present during study. Left ventricular systolic function is normal. No regional wall motion abnormalities noted. Left Ventricular Ejection Fraction = 55-60%. Mild aortic regurgitation. There is trace mitral regurgitation. The LV diastolic function is normal. CT chest performed on arrival yesterday revealed no evidence of pulmonary embolism. Coding Level of Care Code 16020 IN/OBS CONSULT LVL 4,60M Diagnoses Precordial chest pain R07.2 HLD (hyperlipidemia) E78.5
--- NOTE | 2024-12-04 12:14 | Electrocardiogram Report ---
Test Reason : Blood Pressure : */* mmHG Vent. Rate : 66 BPM Atrial Rate : 66 BPM P-R Int : 162 ms QRS Dur : 84 ms QT Int : 420 ms P-R-T Axes : 70 54 60 degrees QTcB Int : 440 ms Normal sinus rhythm Normal ECG When compared with ECG of 29-Jan-2024 14:21, No significant change was found Confirmed by Bao Chavez ([id number]) on 12/04/2024 12:13:39 PM Referred By: REFERRED SELF Confirmed By: Bao Chavez
--- NOTE | 2024-12-04 12:54 | Hospitalist Progress Note ---
Date of Service December 04, 2024 Assessment & Plan (1) Chest pain, rule out acute myocardial infarction: (2) Elevated d-dimer: (3) HLD (hyperlipidemia): Plan per admitting service notes with addendum: Ms. Corona is a 59 year old F admitted for chest pain rule out. She started to experience CP and SOB while riding her [place]. She noted that her HR was recorded at 201 about 10-11 minutes into her workout. She is chest pain free since presenting to the ED, although continues to feel nauseated with intermittent lightheadedness. Additional PMH includes: SVT, diastolic CHF, mild aortic regurgitation, HTN and HLD. She does report having a heart cath eterization in 2019 with minimally noted cardiac disease; Chart review indicates 10% proximal RCA stenosis. No history of DVT/PE. Her last appointment with cardiology was 01/29/2024 and her next appointment is 03/21/2025. It appears that she has intermittently experienced chest pressure and lightheadedness associated with daily activities. She did have a stress test in 2023. Patient with significant familial cardiac history. Grandmother had AVR and at 62 years old, father with stents and pacemaker, she has 2 sisters. One has had CABG x 4 and both have had AMI x 2. Pt denies tobacco, alcohol and recreational drug use. Patient will be admitted for further evaluation and monitoring for chest pain rule out. ECG in AM. Trend troponin and obtain repeat ECHO. Would benefit from opt ZIO patch or possibly stress test. Given mild elevated of d-dimer, will obtain chest CTA. Given cardiac history and relationship established with [employer] cards will consult cardiology for further guidance. Chest Pain - rule out AMI: Chest pain and SOB identified with elevated HR (201) while riding [place] HR 70's since ED arrival Initial Troponin negative; will trend x2 ECG NSR; repeat in AM No history of DVT/PE Most Recent ECHO 05/2022; EF 55 to 59%, mild AVR, TR and LVWMN. Will obtain repeat ECHO NPO after MN pending cards eval 12/04 troponin negative x 3 EKG No signs of acute ischemia or infarct echo: LV systolic function is normal EF 55-60% LV diastolic function normal for stress test today Elevated D-Dimer: D-Dimer: 570 Low suspicion for PE CT chest: no acute PE Diastolic Heart Failure: Most Recent ECHO 05/2022; EF 55 to 59%, mild AVR, TR and LVWMN. Echo as per above Euvolemic on exam HTN: Takes Metoprolol HLD: Takes atorvastatin Disposition: PCP: Dr. Diaz Code Status: Full VTE Prophylaxis: TEDS and SCDs for now Admission and Anticipated Discharge Date Admission Date: December 03, 2024 Subjective Seen resting in bed, comfortable, not in distress Events overnight noted Was having left-sided chest discomfort radiating to the back overnight, relieved by nitro sublingual Also had some nausea associated with the chest pain On exam, chest pain is about 2-3 out of 10 No palpitation, shortness of breath, dizziness No other new symptoms Review of Systems Review of Systems: all noted and negative except for above Physical Exam Physical Exam: General- oriented x 3, not in distress, speaks in sentences with no effort or accessory muscle use Eyes- anicteric Neck- no JVD Lungs- clear breath sounds bilaterally, no rales/wheezes Heart- normal rate, regular rhythm; no murmurs Abdomen- normal bowel sounds, nondistended, soft, nontender Extremities- no pretibial edema, no calf tenderness Neuro- alert, oriented x 3; no gross focal neurologic deficits Skin- warm & dry Results & Data Results & Data Vital Signs (Past 12 Hours) Vital Signs Temp Pulse Pulse Resp BP Pulse Ox O2 Del Method 12/04/24 12:34 36.6 C 65 18 125/84 94 Room Air 12/04/24 08:39 48 L 12/04/24 08:16 36.7 C 59 L 20 115/75 96 Room Air 12/04/24 05:58 57 L 12/04/24 03:52 36.8 C 70 18 125/89 98 Room Air all noted and reviewed including below
--- NOTE | 2024-12-04 14:57 | Communication Note ---
Date of Service: December 04, 2024 Patient underwent exercise stress echo with normal echocardiographic response. Symptoms of lightheadedness, dizziness however reproduced at peak stress with transient left sided chest pain that radiated to the left shoulder blade noted that resolved spontaneously. Catheterization films from the 2019 procedure reviewed with very favorable findings then with low likelihood that she would have developed obstructive CAD in the interim. Plan: diet Normal saline 500 ml add amlodipine 2.5 mg daily. Perhaps discharge after she eats if feeling better. If not, remain in hospital with NPO status overnight until reassessed. Jeniffer Grayson, DO
[2024-12-04] MEDS: SODIUM CHLORIDE 0.9% 500 ML IV SCH (15:07)
--- NOTE | 2024-12-04 15:42 | Electrocardiogram Report ---
Test Reason : Blood Pressure : */* mmHG Vent. Rate : 77 BPM Atrial Rate : 77 BPM P-R Int : 160 ms QRS Dur : 80 ms QT Int : 376 ms P-R-T Axes : 54 13 43 degrees QTcB Int : 425 ms Normal sinus rhythm Normal ECG When compared with ECG of 29-Jan-2024 14:21, No significant change was found Confirmed by Bao Chavez ([id number]) on 12/04/2024 3:41:54 PM Referred By: REFERRED SELF Confirmed By: Bao Chavez
[2024-12-04] MEDS ORDERED: NITROGLYCERIN SL 0.4 MG/TAB TAB SL PRN (21:00)
[2024-12-05] MEDS: POTASSIUM CHLORIDE 10 MEQ TABCR PO SCH (06:48)
--- NOTE | 2024-12-05 09:23 | Cardiology Progress Note ---
Date of Service December 05, 2024 Assessment & Plan (1) Precordial chest pain: Plan: Patient with serial negative high-sensitivity troponin levels. With heart rate elevated to the range of 200 bpm with exercise yesterday, question if she experienced an arrhythmia such as supraventricular tachycardia. With regards to angina, the patient had well over 3 hours of discomfort prior to arrival last evening I think the normal EKG, normal resting wall motion on ec hocardiogram and normal serial high sensitive troponin levels are reassuring. Exercise echo response normal on 12/04 however had lightheadedness, and chest pain at peak stress that resolved quickly without intervention. Symptoms atypical for angina. Will at CRP and ESR to labs this am. Keep NPO for now. Continue amlodipine for treatment of microvascular dysfunction. (2) HLD (hyperlipidemia): Plan: Cholesterol under reasonably well-controlled on most recent panel. Continue atorvastatin 40 mg daily. I spent a total of 50 minutes on the date of service in preparation, delivery, and documentation of the care provided to this patient, excluding any time spent in the performance of separately billed services. Jeniffer Grayson DO Admission and Anticipated Discharge Date Admission Date: December 03, 2024 Subjective Patient with ongoing 2-3/10 intensity chest discomfort overnight and this am. Partially palliated with Tylenol. Telemetry reveals SR in the 80s. Review of Systems Review of Systems: All systems reviewed & are unremarkable except as noted in HPI & below Physical Exam Constitutional: WD/WN, vitals as above Neck: trachea midline Cardiovascular: RRR, no murmur, no edema Vessels: + JVD Gastrointestinal (Abdomen): normal bowel sounds, soft, nontender, no hepatosplenomegaly Neurologic: PERRL, EOMI, accommodation nl, no face palsy, no dysarthria Results & Data Vital Signs (Past 12 Hours) Vital Signs Temp Pulse Pulse Resp BP Pulse Ox O2 Del Method 12/05/24 08:00 36.6 C 85 18 141/85 H 95 Room Air 12/05/24 04:16 36.4 C L 66 18 128/70 96 Room Air 12/04/24 23:36 36.6 C 68 18 108/67 98 Room Air 12/04/24 21:55 60 PG Care Time/CCT Total # of Minutes Spent Total Time Spent with Patient: Total time spent is greater than 50% in coordination of care (as documented) at patient's floor/unit and/or counseling patient: Coding Level of Care Code 80671 SUB INP/OBS CARE 3/50MIN Diagnoses Precordial chest pain R07.2 HLD (hyperlipidemia) E78.5
[2024-12-05 10:11] LABS: Alanine Aminotransferase 24 U/L (7-52); Albumin Globulin Ratio 1.5 (0.9-2); Alkaline Phosphatase 66 U/L (34-104); Anion Gap 6 (3-11); Bilirubin,Total 1.7 mg/dl (0.2-1.0); Blood Urea Nitrogen 12 mg/dl (6-23); Calcium 8.8 mg/dl (8.6-10.3); Carbon Dioxide 28 mmol/L (21-32); Chloride 107 mmol/L (98-107); Creatinine Clr Calc Pharmacy 85.6 ml/min; Globulin 2.5 gm/dl (2.5-4.0); Glucose 112 mg/dl (70-99(Fasting)); Potassium 3.9 mmol/L (3.5-5.1); Sodium 141 mmol/L (136-145); Total Protein 6.3 gm/dl (6.0-8.3)
[2024-12-05 16:09] VITALS: RESP 18
--- NOTE | 2024-12-05 16:35 | Communication Note ---
Date of Service: December 05, 2024 Patient with ongoing low intensity chest discomfort overnight last night and again today. Inflammatory markers (CRP, ESR, within normal limits). Proceed with cardiac catheterization for further assessment. Patient agreeable. Jeniffer Grayson DO
--- NOTE | 2024-12-05 16:54 | Pre Anesthesia Assessment ---
Date of Service December 05, 2024 Pre Sedation Assessment Vital Signs Temp Pulse Pulse Resp BP Pulse Ox O2 Del Method 12/05/24 16:06 98 F 72 18 134/79 96 Room Air 12/05/24 15:48 98.1 F 67 17 133/81 94 Room Air 12/05/24 14:00 62 12/05/24 14:00 56 L 12/05/24 11:41 98.2 F 61 18 142/81 H 95 Room Air 12/05/24 08:00 97.9 F 85 18 141/85 H 95 Room Air 12/05/24 04:16 97.5 F L 66 18 128/70 96 Room Air 12/04/24 23:36 97.9 F 68 18 108/67 98 Room Air 12/04/24 21:55 60 12/04/24 19:39 98.2 F 70 18 125/77 98 Room Air Cardiovascular + regular rate Respiratory + respiratory effort normal Pre-Sedation Airway Assessment Smoking Status: Never smoker Hx Sleep Apnea: No Short, Thick Neck: No Thyromental Distance: > or= 3.5 Finger Breadths Oral Cavity: + WNL Mallampati Class: III ASA: ASA3 NPO Status Date of Last Intake of Fluids: 12/05/24 Time of Last Intake of Fluids: 07:00 Date of Last Intake of Solid Food: 12/04/24 Time of Last Intake of Solid Foods: 20:00 Procedure Planning Contraindications for Sedation: none Current Medications Reviewed: Yes Notes The planned sedation has been discussed with the patient. Informed Consent was obtained. I have identified the patient, determined the appropriateness of sedation and have assessed the patient immediately prior to the procedure. All medicine(s) and interventions are by my order.
[2024-12-05] MEDS: HEPARIN (PORCINE) 1000 UNIT/ML 10 ML (CATH LAB USE ONLY) ONE (17:13)
[2024-12-05] MEDS: MIDAZOLAM HCL 1 MG/ML 2ML VIAL ONE ×2 (17:13→17:15)
[2024-12-05] MEDS: OPTIRAY 350 ONE (17:14)
[2024-12-05] MEDS: LIDOCAINE 1% LOCAL 20 ML VIAL ONE (17:14)
[2024-12-05] MEDS: niCARdipine 2,000 MCG/20 ML SYR ONE (17:14)
[2024-12-05] MEDS: NITROGLYCERIN/D5W 100MCG/ML 20ML SYR ONE (17:14)
--- NOTE | 2024-12-05 17:24 | Post Anesthesia Assessment ---
Date of Service December 05, 2024 Post Sedation Assessment Vital Signs Temp Pulse Pulse Resp BP Pulse Ox O2 Del Method 12/05/24 16:06 98 F 72 18 134/79 96 Room Air 12/05/24 15:48 98.1 F 67 17 133/81 94 Room Air 12/05/24 14:00 62 12/05/24 14:00 56 L 12/05/24 11:41 98.2 F 61 18 142/81 H 95 Room Air 12/05/24 08:00 97.9 F 85 18 141/85 H 95 Room Air 12/05/24 04:16 97.5 F L 66 18 128/70 96 Room Air 12/04/24 23:36 97.9 F 68 18 108/67 98 Room Air 12/04/24 21:55 60 12/04/24 19:39 98.2 F 70 18 125/77 98 Room Air Recovery Score Activity: Moves 4 extremities Respiration: Deep Breath/Cough Circulation: +/-20% PreAnes Value Consciousness: Fully Awake Oxygen Saturation: O2 needed for >90% Discharge Sedation Level of Care: Fast Track Phase II
--- NOTE | 2024-12-05 17:39 | Communication Note ---
Date of Service: December 05, 2024 Cardiac catheterization films reviewed and discussed with Dr. Sahu of interventional cardiology. No epicardial coronary stenosis to explain the patie nt's discomfort. Microvascular dysfunction still possibility. Continue aspirin, atorvastatin, furosemide, metoprolol, and new medication amlodipine 2.5 mg daily. Stable for discharge from a cardiac perspective when she completes the post radial artery recovery protocol. Discharge instructions will be added to her discharge document. Jeniffer Grayson DO
--- NOTE | 2024-12-05 18:16 | Discharge Summary ---
Discharge Summary Date of Service December 05, 2024 Principal Dx & Hospital Course #1 = Principal Diagnosis (1) Chest pain, rule out acute myocardial infarction: (2) Elevated d-dimer: (3) HLD (hyperlipidemia): Plan per admitting service notes with addendum: Ms. Corona is a 59 year old F admitted for chest pain rule out. She started to experience CP and SOB while riding her [place]. She noted that her HR was recorded at 201 about 10-11 minutes into her workout. She is chest pain free since presenting to the ED, although continues to feel nauseated with intermittent lightheadedness. Additional PMH includes: SVT, diastolic CHF, mild aortic regurgitation, HTN and HLD. She does report having a heart catheterization in 2019 with minimally noted cardiac disease; Chart review indicates 10% proximal RCA stenosis. No history of DVT/PE. Her last appointment with cardiology was 01/29/2024 and her next appointment is 03/21/2025. It appears that she has intermittently experienced chest pressure and lightheadedness associated with daily activities. She did have a stress test in 2023. Patient with significant familial cardiac history. Grandmother had AVR and pas sed away at 62 years old, father with stents and pacemaker, she has 2 sisters. One has had CABG x 4 and both have had AMI x 2. Pt denies tobacco, alcohol and recreational drug use. Patient will be admitted for further evaluation and monitoring for chest pain rule out. ECG in AM. Trend troponin and obtain repeat ECHO. Would benefit from opt ZIO patch or possibly stress test. Given mild elevated of d-dimer, will obtain chest CTA. Given cardiac history and relationship established with [facility] will consult cardiology for further guidance. Chest Pain - rule out AMI: Chest pain and SOB identified with elevated HR (201) while riding [place] HR 70's since ED arrival Initial Troponin negative; will trend x2 ECG NSR; repeat in AM No history of DVT/PE Most Recent ECHO 05/2022; EF 55 to 59%, mild AVR, TR and LVWMN. Will obtain repeat ECHO NPO after MN pending cards eval 12/04 troponin negative x 3 EKG No signs of acute ischemia or infarct echo: LV systolic function is normal EF 55-60% LV diastolic function normal for stress test today Elevated D-Dimer: D-Dimer: 570 Low suspicion for PE CT chest: no acute PE Diastolic Heart Failure: Most Recent ECHO 05/2022; EF 55 to 59%, mild AVR, TR and LVWMN. Echo as per above Euvolemic on exam HTN: Takes Metoprolol HLD: Takes atorvastatin Notes For Next Care Provider Ms. Corona is a 59 year old female that presented to the ED today after she started to experience chest pain and SOB while she was riding her [place]. Admitted to medicine for cardiac workup. Cardiology consulted, recommended cath which was unremarkable. Consideration for microvascular disease. on 12/05/2024 patient medically stable for discharge home. To do: [ ] f/u with cardiology Medication Changes From Visit -amlodopine, protonix, voltaren cream Admission HPI Per Admitting Provider Ms. Corona is a 59 year old female that presented to the ED today after she started to experience chest pain and SOB while she was riding her [place]. She noted that her HR was recorded at 201 about 10-11 minutes into her workout. She proceeded to the ED. She is chest pain free since presenting to the ED, Although continues to feel nauseated with intermittent lightheadedness. Additional PMH includes: SVT, diastolic CHF, mild aortic regurgitation,HTN and HLD. Patient reports that she was started on metoprolol 25 mg twice daily last year when she was identified to have SVT. She does report having a heart catheterization in 2019 with minimally noted cardiac disease; Chart review indicates 10% proximal RCA stenosis. No history of DVT/PE. She reportedly was told she should have been seen for inpatient monitoring but due to personal circumstances she was unable to proceed with such. Her last appointment with cardiology was 01/29/2024 and her next appointment is 03/21/2025. It appears that she has intermittently experienced chest pressure and lightheadedness associated with daily activities. She did have a stress test in 2023. Most recent ECHO was May 2022; EF 55 to 59%, mild AVR, TR and normal left ventricular wall motion. Patient with significant familial cardiac history. Grandmother had AVR and at 62 years old, father with stents and pacemaker, she has 2 sisters. One has had CABG x 4 and both have had AMI x 2. Pt denies tobacco, alcohol and recreational drug use. In the ED, no leukocytosis, initial troponin negative. Electrolytes all normal. D-Dimer mildy elevated at 570. No recent travel or new medications. Given mild elevation, Chest CT ordered to rule out PE; low suspicion for PE. Patient will be admitted for further evaluation and monitoring with ECG in AM. Trend troponin and obtain repeat ECHO. Would benefit from opt ZIO patch or possibly stress test. Given mild elevated of d-dimer, will obtain chest CTA. Given cardiac history and relationship established with [employer] will consult cardiology for further guidance. Please see A/P for further details. Discharge Exam Gen: A&O 3 NAD HEENT: NCAT, EOMI, not icteric. External ears normal. No rhinorrhea. Moist mucous membranes. Neck: Supple, full range of motion, no observable masses, No meningeal sign. Lungs: No Respiratory distress. CV: RRR, no edema. Abdomen: Soft, nondistended, No rebound tenderness. MSK: No joint swelling, no redness. Skin: No rashes, petechiae, lesions. Normal color per patient. Neuro: Normal Gait, Grossly intact. Psych: Appropriate for situation. Updated Medication List Medication Instructions Recorded Confirmed Type atorvastatin 40 mg tablet 40 mg PO HS 07/03/18 12/03/24 History melatonin 2.5 mg chewable tablet 2.5 mg PO HS PRN Sleep 11/13/18 12/03/24 History potassium chloride 10 mEq 10 meq PO QAM 11/13/18 12/03/24 History tablet,extended release (Klor-Con) aspirin 81 mg chewable tablet 81 mg PO HS 10/04/19 12/03/24 History adqvdxoc-koy-uspfh acid 0.4 1 tab PO QAM 10/04/19 12/03/24 History mg-lycopene 300 mcg-lutein 250 mcg tablet (Centrum Silver) furosemide 20 mg tablet 20 mg PO QAM 01/29/24 12/03/24 History metoprolol succinate 25 mg 25 mg PO QAM 01/29/24 12/03/24 History tablet,extended release 24 hr amlodipine 5 mg tablet 2.5 mg (1/2 x 5 mg) PO DAILY #30 12/05/24 Rx tabs diclofenac sodium 1 % topical gel 2 g topical QID shoulder pain #50 12/05/24 Rx (Voltaren Arthritis Pain) grams ondansetron 4 mg disintegrating 4 mg PO Q8H PRN nausea and 12/05/24 Rx tablet vomiting 7 days #14 tabs oxycodone 5 mg tablet 5 mg PO QID PRN pain #5 tabs 12/05/24 Rx pantoprazole 20 mg tablet,delayed 20 mg PO HS 4 weeks #28 tabs 12/05/24 Rx release (Protonix) Hospital Stay Data Consultations 12/03/24 17:50 ED Decision to Admit Stat 12/04/24 02:35 Consult Cardiology Routine Procedures Performed Operation Date: 12/05/24 15:45 Actual Procedures p Cineradiography w/Routine Exam - Elliot Sahu MD s Cath, Left with Cors and Vent - Elliot Sahu MD Diagnostic Imagining Performed 12/03/24 17:29 CT angio chest PE protocol Stat 12/05/24 15:44 CL Cath Imgs for PACS use only Stat Pending Results Patient Have Any Pending Studies at Discharge: No Discharge Instructions Given to Patient (Per Discharging Provider) ACTIVITY RECOMMENDATIONS: Excess manipulation of the wrist should be avoided for the next 24-48 hours. * No lifting over 2 pounds (approximately a 1/2 gallon of milk) with the utilized arm for 24 hours. * No strenuous activity such as bowling or tennis for 3 days. * Keep the site of the procedure covered with a bandage for 24 hours. *You may shower the day after the procedure. Do not take a tub bath or submerge the puncture site in water for the next 3 days. *Do not operate any motorized equipment for 3 days. SPECIAL CARE INSTRUCTIONS: The site may be slightly bruised and sore following your procedure. Should any of the following occur, contact the Dr. who performed your procedure. 1. Redness/inflammation, swelling, chills, or fever, or colored drainage at procedure site within 3-7 days after your procedure. 2. Coldness, discoloration, ongoing numbness, severe pain, or swelling. Expect mild tingling of hand and tenderness at the puncture site for up to three days. If this persists beyond three days, or other symptoms develop, notify the Dr. who performed your procedure. BLEEDING: If the procedure site on your wrist begins to bleed, do not panic 1. Place 1 or 2 fingers firmly just slightly above the insertion site to stop the bleeding. You may be able to feel your pulse as you hold pressure. 2. Lift your finger after 5 minutes to see if the bleeding has stopped. 3. Once the bleeding has stopped, gently wipe the wrist area clean with a bandage. * If the bleeding from your wrist does not stop after 10 minutes, or if there is a large amount of bleeding or spurting, call 911 (do not drive yourself to the hospital). SKIN IRRITATION: * You may experience some redness and/or swelling in the area where radiation was administered. If any skin irritation occurs, please contact your family physician. FOLLOW UP VISIT: Keep any scheduled doctor appointments. Total Time Total Time Spent Total Time Spent (In Minutes): I spent a total of 35 minutes in direct patient care, including [id number]-tr-rhoh time with the patient and/or family, reviewing medical records, ordering and r eviewing diagnostic tests, and coordinating care with other healthcare providers. This time includes: history taking, physical examination, medical decision making, counseling, ECG interpretation, imaging interpretation, lab interpretation, orders, and education, excluding time spent in the performance of separately billed services.
[2024-12-05 19:53] VITALS: BP 143/85; PULSE 60; TEMP 97.9; O2SAT 97
--- NOTE | 2024-12-06 00:33 | Cardiac Catheterization ---
[facility] Data: Director Pharmaceutical Cardiac Status Clinical evaluation leading to the procedure CAD Presenation: Stable angina Anginal Classification: CCS III Diagnostic Physicians Name: Elilot Sahu MD Closure Device Recommendations: Medical Therapy and/or Counseling Cardiac Cath Procedure Full Procedure Date December 06, 2024 Pre-Procedure Diagnosis Pre-Procedure Diagnosis: Angina AUC Score AUC Score: 7 Post-Procedure Diagnosis Post-Procedure Diagnosis: Mild CAD and Normal Intracardiac Pressures Procedure(s) Performed Procedure(s) Performed: Coronary Angiography and Left Heart Cath Tube Trailer Filler Elliot Sahu MD Die Developer(s) Bety Estimated Blood Loss Estimated Blood Loss: 15 Medication(s) Medication(s): Fentanyl, Heparin, Lidocaine 1%, Nicardipine, Nitroglycerin and Versed Summary of Findings Indication: Chest pain, suspected angina Access: 6 Fr slender right radial artery Catheters: [place] Findings: LM -angulated takeoff normal caliber, no significant disease LAD - Medium caliber, no significant disease. Distal vessel wraps around apex. Medium D1 without disease. Circumflex -medium caliber, no significant disease. Medium OM2 without disease. RCA -dominant, medium caliber, no significant disease. Small RPDA with luminal irregularities. LVEDP -10 Arterial Closure: TR band Summary: 1. Angiographically normal coronary arteries 2. Normal intracardiac filling pressure Recommendations: No acute or high risk CAD to explain patient's symptoms. May have coronary vasospasm or microvascular dysfunction and agree with trial of coronary vasodilators Continued ASCVD risk factor modification Hemodynamics Rest Ao:: 124/74/90 Final Ao: 130/68/27 LV: 129/10 Recommendations Recommendations: Medical Therapy and/or Counseling Specimens Specimens: None Radiation Exposure (mGy) 233 Contrast (mls) 25 Anesthesia Moderate 6933-6037 Procedural Complication(s) None Disposition PCU I attest to the content of the Intraoperative Record and any orders documented therein. Any exceptions are noted below. [facility] Card Cath Procedure Codes Cardiac Catheterization Procedure 1: Cardiovascular Cath Procedures: 87457 Coronaries and LHC (+/-LV) Moderate Sedation Procedure 1: Sedation/Anesthesia: 27280 Mod Sedation by the same physician;Init15 Min Child Age 5 & Up PG Care Time/CCT Total # of Minutes Spent Total Time Spent with Patient: Total time spent is greater than 50% in coordination of care (as documented) at patient's floor/unit and/or counseling patient:
== END 2024-12-05 21:00 | disposition home or self-care (01) | DRG 287 ==
LOC: ED 14:50 → SUATTDRO 17:59 → EDINP 17:59 → 4W 21:03